=== PATIENT | male | born 1990 | race African-American/Black ===

== ENCOUNTER 2023-03-08 23:20 | Emergency (ER) | payer BC ==
[2023-03-08 23:27] VITALS: BP 120/70; PULSE 114; RESP 19; TEMP 98.2; BMI 21.7
[2023-03-08] MEDS ORDERED: DIPHTH,PERTUSS(ACELL),TET 0.5 ML DISP.SYRIN IM ONE (23:34)
[2023-03-09] MEDS ORDERED: DIPHTH,PERTUSS(ACELL),TET 0.5 ML DISP.SYRIN IM ONE (00:22)
[2023-03-09] MEDS ORDERED: LIDOCAINE HCL 1%, 10 MG/ML (50 mL VIAL) SQ ONE (00:51)
[2023-03-09] MEDS ORDERED: LIDOCAINE HCL 2% (20ML MULTI-DOSE VIAL) ONE ×2 (00:55→00:56)
[2023-03-09] MEDS ORDERED: BACITRACIN 0.9 GM PACKET ONE (02:05)
[2023-03-09] MEDS ORDERED: CEPHALEXIN MONOHYDRATE 500 MG CAPSULE (UD) PO ONE (02:42)
[2023-03-09] MEDS ORDERED: CEPHALEXIN MONOHYDRATE 500 MG CAPSULE (UD) ONE (03:06)
== END 2023-03-09 03:16 | disposition left against medical advice (07) ==
LOC: JER 23:20
PROC: 0HQBXZZ Repair Right Upper Arm Skin, External Approach (ICD-10-PCS; principal; 2023-03-08)
PROC: 3E0234Z Introduction of Serum, Toxoid and Vaccine into Muscle, Percutaneous Approach (ICD-10-PCS; 2023-03-09)
DX: S41.021A Laceration with foreign body of right shoulder, initial encounter (principal); S51.811A Laceration without foreign body of right forearm, initial encounter; S51.011A Laceration without foreign body of right elbow, initial encounter; S40.212A Abrasion of left shoulder, initial encounter; W22.8XXA Striking against or struck by other objects, initial encounter
CPT/HCPCS: 70450-TC; 72125-TC; 73070-TC-RT-FY; 90715; 99284-25